=== PATIENT | male | born 1950 | race African-American/Black ===

== ENCOUNTER → 2018-04-02 | Day surgery (SDC) | payer MEDICARE ==
[2018-03-31 11:10] LABS: BASOPHILS # (AUTO) 0.1 (0.0-0.1); EOSINOPHILS # (AUTO) 0.1 (0.0-0.4); EOSINOPHILS % 1.9 % (0.0-6.0); HEMOGLOBIN 14.3 g/dL (14.0-18.0); LYMPHOCYTES # (AUTO) 1.8 (1.0-3.2); LYMPHOCYTES % 28.6 % (18.0-39.1); MEAN CORPUSCULAR HEMOGLOBIN 28.9 pg (28-32); MEAN CORPUSCULAR HGB CONC 33.3 g/dL (31-35); MONOCYTES # (AUTO) 0.7 (0.2-0.8); MONOCYTES % 11.3 % (4.4-11.3); NEUTROPHILS # (AUTO) 3.6 (2.1-6.9); NEUTROPHILS % 56.7 % (38.7-80.0); PLATELET COUNT 263 x10e3/uL (140-360); RED BLOOD COUNT 4.94 x10e6/uL (4.3-5.7); RED CELL DISTRIBUTION WIDTH 15.7 % (11.7-14.4)
--- NOTE | 2018-03-31 12:27 | Diagnostic Imaging Report ---
EXAMINATION: PA and lateral views of the chest. COMPARISON: None CLINICAL HISTORY: Meniscal tear, preoperative study DISCUSSION: Lungs are well-inflated. No focal airspace consolidation, pleural effusion, or pneumothorax. Atherosclerotic calcification of the thoracic aorta with otherwise normal cardiomediastinal contour. No acute osseous abnormality. IMPRESSION: No acute cardiopulmonary abnormalities. Signed by: Dr. Saul Posada M.D. on 03/31/2018 12:24 PM
[~2018-04-02] MED LIST: ACETAMINOPHEN/CODEINE 300MG - 30MG TAB ONE; BUPIVACAINE 0.5%/EPI 30 ML SDV INJ ONE; CEFAZOLIN SOD 2 GM/D5W 50ML 50 ML IV ONE; DEXAMETHASONE SOD PHOS INJ 4 MG/ML VIAL ONE; EPHEDRINE SULFATE INJ 50 MG/10 ML SYR ONE; FENTANYL CITRATE/PF 100MCG/2 ML INJ ONE; KETOROLAC TROMETHAMINE 30 MG/ML VIAL ONE; LIDOCAINE HCL 2% LOCAL INJ 5 ML SDV VIAL INJ ONE; LOSARTAN POTAS100 MG PO; METOPROLOL SUCC50 MG PO; MIDAZOLAM HCL 2 MG/2 ML VIAL ONE; ONDANSETRON HCL INJ 2 MG/ML VIAL ONE; PROPOFOL IV EMULSION 10 MG/ML 20 ML VIAL ONE; SEVOFLURANE INHAL SOLN 250 ML PEN BTL ONE
[2018-04-02 10:20] VITALS: BP 134/84
--- NOTE | 2018-04-02 21:37 | Operative Report ---
DATE OF PROCEDURE: April 02, 2018 PREOPERATIVE DIAGNOSES 1. Right knee medial meniscus tear. 2. 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 POSTOPERATIVE DIAGNOSES 1. Right knee medial meniscus tear. 2. 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 OPERATIONS AND PROCEDURES PERFORMED 1. The patient underwent right knee examination under anesthesia. 2. Right knee arthroscopy. 3. Right knee partial medial meniscectomy. 4. Right knee chondroplasty of the patella, the trochlea, the medial femoral condyle, the medial tibial plateau, the lateral femoral condyle and the lateral tibial plateau. STAFFING SPECIALIST: Mini Garrison. ANESTHESIA: General endotracheal intubation anesthesia. IV FLUIDS: As per the anesthesia record. BRIEF DESCRIPTION OF PATIENT'S OPERATIVE PROCEDURE: Mr. Wolfe was taken to the operating room, placed in the supine position on the operating table. Following induction of general anesthesia as well as the endotracheal intubation, the patient's right lower extremity was examined under anesthesia. He was found to have a mild effusion within the knee joint, but otherwise ligamentously stable knee. The patient's lower extremity was prepped and draped in standard surgical fashion. A 2-portal technique used to provide this patient arthroscopic evaluation of the knee joint. Examination of the suprapatellar pouch, medial and lateral gutters revealed no evidence of loose bodies. There was, however, evidence of chondromalacia of the patellar and trochlear surfaces. The scope was advanced to the medial compartment. Examination of the medial compartment demonstrated a macerated medial meniscus tear. There were portions of the medial meniscus that were everted and extruded out of the medial compartment. A combination of biting forceps and motorized shaver were used to resect the torn portion of the meniscus. There was also chondromalacia of the medial femoral condyle and medial tibial plateau. A chondroplasty of each of these surfaces was performed. The scope was then placed in the intercondylar notch. The anterior cruciate ligament was identified and found to be intact. The scope was advanced in lateral compartment. There was chondromalacia of the articulating surfaces. A shaver was used to provide chondroplasties of the lateral femoral condyle and lateral tibial plateau. The scope was then placed in the suprapatellar pouch and chondroplasty of the patella and trochlea performed. The knee was deflated with sterile normal saline. Each of the portal sites were closed using 4-0 nylon suture. Portal sites as well as the knee itself were then injected with 0.5% Marcaine with epinephrine. Sterile dressings were applied. The patient was then awakened and taken to the postanesthesia care unit in stable condition. Mini Garrison acted as dental laboratory assistant for this case was necessary for both prepping and draping the patient, as well as positioning the leg during surgery and the closure of wounds to allow this case to be successful. Job#: [id number] ELIAZAR
--- OUTSIDE RECORDS SUMMARY | 2018-04-08 12:30 | XMS REPORT ---
Author Author [facility] Address Unknown Phone Unavailable Care Team Providers Care Tomato Pulper Operator Name Role Phone FABRICIO CAT Unavailable Unavailable Payers Payer Name Policy Type Policy Number Effective Date Expiration Date Problems This patient has no known problems. Allergies, Adverse Reactions, Alerts Allergy Name Allergy Type Status Severity Reaction(s) Onset Date Inactive Date Treating Clinician Comments No Known Allergies DA Active U 2015-03-31 00:00:00 Medications This patient has no known medications. Results Test Description Test Time Test Comments Text Results Atomic Results Result Comments CHEST 2 VIEWS 2018-03-31 12:22:00 [place] [address] Patient Name: RAYMUNDO LINK MR #: [id number] : 1950 Age/Sex: 68/M Req #: [id number] Adm Physician: Ordered by: FABRICIO CAT MD Report #: [id number] Location: OR Room/Bed: Procedure: [id number] DX/CHEST 2 VIEWS Exam Date: 03/31/18 Exam Time: 1200 REPORT STATUS: Signed EXAMINATION: PA and lateral views of the chest. COMPARISON: None CLINICAL HISTORY: Meniscal tear, preoperative study DISCUSSION: Lungs are well-inflated. No focal airspace consolidation, pleural effusion, or pneumothorax. Atherosclerotic calcification of the thoracic aorta with otherwise normal cardiomediastinal contour. No acute osseous abnormality. IMPRESSION: No acute cardiopulmonary abnormalities. Signed by: Dr. Joanne Torres M.D. on 03/31/2018 12:24 PM Dictated By: JOANNE TORRES MD 1224 Transcribed By: RELL on 03/31/184 COPY TO: FABRICIO CAT MD
== END | disposition home or self-care (01) ==
LOC: OR 05:53
PROVIDERS: ATTEND Specialist
DX: S83.241A Other tear of medial meniscus, current injury, right knee, initial encounter (principal); M22.41 Chondromalacia patellae, right knee; M17.11 Unilateral primary osteoarthritis, right knee; S83.261A Peripheral tear of lateral meniscus, current injury, right knee, initial encounter; I10 Essential (primary) hypertension; R00.1 Bradycardia, unspecified; X58.XXXA Exposure to other specified factors, initial encounter; Z01.810 Encounter for preprocedural cardiovascular examination; Z01.812 Encounter for preprocedural laboratory examination; Z01.818 Encounter for other preprocedural examination
CPT/HCPCS: 29881; 36415; 71046; 85025; 93005; J1100; J1885; J2001; J2250; J2405; J0690

== ENCOUNTER 2020-01-06 05:13 | Observation (INO) | payer MEDICARE, OTHER ==
--- NOTE | 2020-01-01 12:51 | Diagnostic Imaging Report ---
X-ray chest PA and lateral. History: Preop Comparison: 03/29/2018 Findings: Central airways unremarkable. Heart size normal. Atherosclerotic aorta. No definite pleural effusion or pneumothorax. No focal acute lung disease. Visualized skeleton shows degenerative changes. Upper abdomen unremarkable. The diaphragms are rather low and flat suggesting COPD. Impression: No acute cardiopulmonary disease. Signed by: Alexi Patterson MD on 01/01/2020 12:48 PM
[2020-01-01 12:54] LABS: COLOR,URINE YELLOW (YELLOW)
[2020-01-01 12:55] LABS: BILIRUBIN,URINE NEGATIVE (NEGATIVE); CLARITY,URINE CLEAR (CLEAR); KETONES,URINE NEGATIVE (NEGATIVE); LEUKOCYTE ESTERASE ,URINE TRACE (NEGATIVE); NITRITE,URINE NEGATIVE (NEGATIVE); PROTEIN,URINE DIPSTICK NEGATIVE (NEGATIVE); URINE UROBILINOGEN 0.2 mg/dL (0.2 - 1)
[2020-01-01 13:08] LABS: BASOPHILS % 0.8 % (0.0-1.0); EOSINOPHILS # (AUTO) 0.2 (0.0-0.4); HEMATOCRIT 45.9 % (38.2-49.6); HEMOGLOBIN 15.1 g/dL (14.0-18.0); LYMPHOCYTES # (AUTO) 1.6 (1.0-3.2); LYMPHOCYTES % 29.5 % (18.0-39.1); MEAN CORPUSCULAR HEMOGLOBIN 28.6 pg (28-32); MEAN CORPUSCULAR HGB CONC 32.9 g/dL (31-35); MEAN CORPUSCULAR VOLUME 86.9 fL (81-99); MONOCYTES # (AUTO) 0.6 (0.2-0.8); NEUTROPHILS # (AUTO) 2.9 (2.1-6.9); NEUTROPHILS % 55.5 % (38.7-80.0); PLATELET COUNT 252 x10e3/uL (140-360); RED BLOOD COUNT 5.28 x10e6/uL (4.3-5.7); RED CELL DISTRIBUTION WIDTH 15.6 % (11.7-14.4)
[2020-01-01 13:14] LABS: ANION GAP 13.2 mmol/L (8-16); BLOOD UREA NITROGEN 14 mg/dL (7-26); BUN/CREATININE RATIO 13 (6-25); CALCIUM 9.4 mg/dL (8.4-10.2); CARBON DIOXIDE 24 mmol/L (22-29); CHLORIDE 108 mmol/L (98-107); CREATININE, SERUM 1.12 mg/dL (0.72-1.25); EST GLOMERULAR FILTRATION RATE > 60 ML/MIN (60-); GLUCOSE 101 mg/dL (74-118); POTASSIUM 4.2 mmol/L (3.5-5.1); SODIUM 141 mmol/L (136-145)
[~2020-01-06] VITALS: Ht 185.4 cm; Wt 90.7 kg
[~2020-01-06 05:13] MED LIST changes: -ACETAMINOPHEN/CODEINE 300MG - 30MG TAB ONE; -BUPIVACAINE 0.5%/EPI 30 ML SDV INJ ONE; -CEFAZOLIN SOD 2 GM/D5W 50ML 50 ML IV ONE; -DEXAMETHASONE SOD PHOS INJ 4 MG/ML VIAL ONE; -EPHEDRINE SULFATE INJ 50 MG/10 ML SYR ONE; -FENTANYL CITRATE/PF 100MCG/2 ML INJ ONE; -KETOROLAC TROMETHAMINE 30 MG/ML VIAL ONE; -LIDOCAINE HCL 2% LOCAL INJ 5 ML SDV VIAL INJ ONE; -MIDAZOLAM HCL 2 MG/2 ML VIAL ONE; -ONDANSETRON HCL INJ 2 MG/ML VIAL ONE; -PROPOFOL IV EMULSION 10 MG/ML 20 ML VIAL ONE; -SEVOFLURANE INHAL SOLN 250 ML PEN BTL ONE
[2020-01-06] MEDS ORDERED: CEFAZOLIN SOD 1 GM/NS 50ML 100 ML IV ONE (06:07)
[2020-01-06] MEDS ORDERED: BACITRACIN 50,000 UNIT VIAL ONE (06:12)
[2020-01-06] MEDS ORDERED: HYDROMORPHONE 0.2MG/ML-SOD CHL 30ML PCA SYRINGE IV PRN (10:15)
[2020-01-06] MEDS ORDERED: ONDANSETRON HCL INJ 2MG/ML 2ML 2 MG/ML VIAL IV PRN (10:15)
[2020-01-06] MEDS ORDERED: ACETAMINOPHEN 1000 MG/100 ML IV PRN (10:15)
[2020-01-06] MEDS ORDERED: NALOXONE HCL INJ 0.4 MG/ML AMP IV PRN (10:15)
[2020-01-06] MEDS ORDERED: FENTANYL CITRATE/PF 100MCG/2 ML INJ ONE (10:25)
[2020-01-06] MEDS ORDERED: KETOROLAC TROMETHAMINE 30 MG/ML VIAL ONE (10:34)
[2020-01-06] MEDS ORDERED: HYDROMORPHONE 1MG/1ML INJ ONE (11:09)
--- NOTE | 2020-01-06 11:09 | Diagnostic Imaging Report ---
EXAMINATION: KNEE RIGHT 1-2 VIEWS INDICATION: Postoperative COMPARISON: None FINDINGS: Portable AP and lateral radiographs of the right knee demonstrate immediate postoperative findings of right total knee replacement. Alignment appears anatomic. No unexpected fracture. Postoperative soft tissue emphysema and small joint effusion. Surgical skin nola in place. IMPRESSION: Anatomic alignment status post right total knee replacement. Signed by: David Lilly MD on 01/06/2020 11:06 AM
--- NOTE | 2020-01-06 13:00 | NUR ---
RCD PT FROM PACU BY BED PT IS ALERT AND ORIENTED VITALS CHECKED PT ON CONTRACT DESIGN AGENT HYDROMORPHONE AND MEJÍA ,NO SIGNS OF BLEEDING ON THE RIGHT LEG SURGICAL SITE ,ADMISSION ASSESSMENT AND HISTORY DONE ,INSTRUCTED THE PATIENT REGARDING HOSPITAL POLICY ,SPECIALLY VISITING POLICY BED LOW AND LOCKED CALL LIGHT IN REACH
[2020-01-06 13:56] VITALS: BP 116/65
--- NOTE | 2020-01-06 14:00 | NUR ---
AC TO PHARMACY CLARIFIED WIT DR BROOKE REGARDING XARELTO START TODAY OR TOMORROW HE SAID START TODAY
--- NOTE | 2020-01-06 14:35 | NUR ---
DC TELEY BY ORDER
--- NOTE | 2020-01-06 14:38 | Consultation ---
DATE OF CONSULTATION: 01/06/2020 REASON FOR CONSULTATION: Medical management. HISTORY OF PRESENT ILLNESS: A 69-year-old man, who has presented to [facility] with diagnosis of advanced right knee degenerative joint disease. The patient today underwent successful right total knee arthroplasty, which was performed by Dr. Freddie Castorena. The patient tolerated the surgery well. The patient states he does have some pain in his right knee, which he states is 6/10 in severity. The patient states his primary care physician is Dr. Vish Oseguera. REVIEW OF SYSTEMS: GENERAL: Weight is stable. No fever or chills. HEENT: No headaches. No vision changes. CARDIOVASCULAR/RESPIRATORY: No chest pain. No shortness of breath or cough. GI: No nausea, vomiting, diarrhea, or constipation. : No dysuria, hematuria, or incontinence. He does have a Sethi catheter in place. NEUROMUSCULAR: No limb weakness numbness. The patient states he does not have significant arthritic pain in his left knee joint. ALLERGIES: NO KNOWN DRUG ALLERGIES. PAST MEDICAL HISTORY: 1. Hypertension. 2. Right knee degenerative joint. FAMILY HISTORY: Multiple family members with hypertension. SOCIAL HISTORY: He is single. He lives with his adult brother. He is retired. No history of tobacco or alcohol use. PAST SURGICAL HISTORY: 1. Right total knee arthroplasty today. 2. Right carpal tunnel surgery. 3. Right foot surgery. HOME MEDICATIONS: 1. Losartan 100 mg daily. 2. Metoprolol succinate 200 mg at bedtime. PHYSICAL EXAMINATION: GENERAL: He is awake, alert, and fully oriented. He looks younger than stated age. VITAL SIGNS: Height 6 feet 1 inch, weight 200 pounds, BMI 26. Blood pressure is 116/66, pulse 56, respiratory rate 16, and oxygen saturation 99% on room air. INTEGUMENT: Skin is warm and dry. No pallor, jaundice, or diaphoresis. HEENT: Anicteric sclerae with moist mucous membranes. NECK: Supple. CARDIOVASCULAR: Distant heart sounds. Regular rate and rhythm. LUNGS: No rales. No rhonchi. No wheezes. ABDOMEN: Benign. : The patient has Sethi catheter in place. EXTREMITIES: No edema or deformity. The right knee is currently dressed. No edema in legs. NEUROLOGIC: Intact. DIAGNOSES: 1. Status post right total knee arthroplasty. 2. Hypertension. PLAN: 1. Mobilize the patient. 2. Resume home blood pressure medications. 3. Encourage incentive spirometer usage to prevent atelectasis. 4. We will start oral Xarelto to prevent deep venous thrombosis. 5. Pain control. 6. Discontinue CONTROLLER COAL OR ORE pump. 7. Discontinue Sethi. 8. Discontinue telemetry. I would like to thank, Dr. Freddie Castorena, for this generous consult. I spent 40 minutes in the care of this patient. MD GEENA Rocha/TITUS /[id number] MTDD
[2020-01-06] MEDS ORDERED: BUPIVACAINE HCL 0.5% INJ 30 ML VIAL INJ ONE (14:43)
[2020-01-06] MEDS ORDERED: ROPIVACAINE 0.5% 5 MG/ML 30 ML SDV ONE (14:43)
--- NOTE | 2020-01-06 15:28 | NUR ---
DR CAT OFFICE PREARRANGED FOLLOWING DISCHARGE PLAN OF: HOME TO [address], [place] [id number] HOME HEALTH WITH [facility] CONFIRMED WITH [facility] [phone] DME 3 IN ONE COMMODE, CPM AND RAISED TOILET SEAT. PROVIDED BY [employer]ER[employer] [phone] [employer]BR[employer] SIGNED AND ON CHART COPY LEFT WITH PATIENT GAVE CARD FOR QUESTIONS AND OR CONCERNS.
[2020-01-06] MEDS: CEFAZOLIN SOD 1 GM/NS 50ML 50 ML IV SCH ×2 (15:30→23:52)
[2020-01-06 16:18] VITALS: BP 110/68
[2020-01-06 18:16] VITALS: BP 110/68
[2020-01-06] MEDS ORDERED: DEXAMETHASONE SOD PHOS INJ 4 MG/ML VIAL ONE (18:38)
[2020-01-06] MEDS ORDERED: GLYCOPYRROLATE INJ 0.2 MG/ML VIAL ONE (18:38)
[2020-01-06] MEDS ORDERED: LIDOCAINE HCL 2% LOCAL INJ 5 ML SDV VIAL INJ ONE (18:38)
[2020-01-06] MEDS ORDERED: EPHEDRINE SULFATE INJ 50 MG/ML VIAL ONE (18:38)
[2020-01-06] MEDS ORDERED: PROPOFOL IV EMULSION 10 MG/ML 20 ML VIAL ONE (18:38)
[2020-01-06] MEDS ORDERED: ONDANSETRON HCL INJ 2MG/ML 2ML 2 MG/ML VIAL ONE (18:38)
[2020-01-06] MEDS ORDERED: SEVOFLURANE INHAL SOLN 250 ML PEN BTL ONE (18:38)
[2020-01-06] MEDS ORDERED: ACETAMINOPHEN 1000 MG/100 ML IV ONE (18:38)
--- NOTE | 2020-01-06 18:44 | NUR ---
PT RESTING ON BED BED SIDE REPORT GIVEN TO ONCOMING NURSE
--- NOTE | 2020-01-06 19:25 | NUR ---
BEDSIDE SHIFT REPORT RECEIVED FROM DAY RN. PT IS ALERT AND ORIENTED X3. RESPIRATIONS ARE EVEN AND UNLABORED. PT ON DILAUDID LEAD GENERATION REPRESENTATIVE PUMP- CONTROLLING HIS PAIN WELL. MEJÍA TO GRAVITY- DRAINING CLEAR YELLOW URINE. WAYLON WRAP DRY AND INTACT ON RT LEG. CALL LIGHT WITHIN REACH. BED LOCKED AND IN LOW POSITION.
[2020-01-06 20:00] VITALS: BP 117/65
[2020-01-06 21:00] VITALS: BP 117/65
[2020-01-06] MEDS ORDERED: RIVAROXABAN 10 MG TABLET PO SCH (21:00)
[2020-01-07] VITALS: BP 127/63
[2020-01-07] MEDS ORDERED: SODIUM CHLORIDE 0.9% 250ML 250 ML ONE (00:28)
[2020-01-07 04:00] VITALS: BP 132/76
[2020-01-07 05:09] LABS: HEMATOCRIT 36.3 % (38.2-49.6); HEMOGLOBIN 11.5 g/dL (14.0-18.0)
--- NOTE | 2020-01-07 05:30 | NUR ---
MEJÍA D/C ORDERED. URINAL GIVEN TO PT AND INSTRUCTIONS TO VOID PER URINAL UNTIL VOIDING OK.PT TOLERTED PROCEDURE WELL. PT DID CPM FROM 12 MN TO 4:30AM. PT TOLERATED PROCEDURE WELL.
--- NOTE | 2020-01-07 07:10 | NUR ---
RCD PT AT BED PT IS ALERT AND ORIENTED PT RESTING ON BED IV PATENT BY SALINE FLUSH PT ON WATER VALVE REPAIRER BED LOW AND LOCKED CALL LIGHT IN REACH
--- NOTE | 2020-01-07 07:10 | NUR ---
PT VOIDED AFTER MEJÍA
[2020-01-07] MEDS: CEFAZOLIN SOD 1 GM/NS 50ML 50 ML IV SCH (07:30)
[2020-01-07 08:23] VITALS: BP 141/69
[2020-01-07 08:40] VITALS: BP 141/69
--- NOTE | 2020-01-07 10:23 | Progress Note ---
DATE: 01/07/2020 CHIEF COMPLAINT/HISTORY OF PRESENT ILLNESS: A 69-year-old man, who underwent successful right total knee arthroplasty yesterday, on Monday January 06, 2020. The patient states he does have soreness in his right knee, but the pain is bearable. The patient voices no other complaints. The patient denies any chest pain, shortness of breath, or cough. Hemoglobin today is 11.5 g/dL. The patient did ambulate today with physical therapy. REVIEW OF SYSTEMS: As per HPI. PHYSICAL EXAMINATION: GENERAL: He is awake, alert and fully oriented, very pleasant on exam. VITAL SIGNS: Height 6 feet 1 inch, weight 200 pounds, BMI 26. Blood pressure is 140/70, pulse is 70, respiratory rate 16, oxygen saturation 100% on room air, and temperature 98.2. INTEGUMENT: Skin is warm and dry. No pallor, jaundice, or diaphoresis. HEENT: Anterior sclerae. Moist mucous membranes. NECK: Supple. CARDIOVASCULAR: Distant heart sounds. Regular rate and rhythm. LUNGS: No rales. No rhonchi. No wheezes. ABDOMEN: Benign. EXTREMITIES: The patient's right knee is currently dressed. No edema in legs. NEUROLOGIC: Intact. DIAGNOSES: 1. Status post right total knee arthroplasty. 2. Hypertensive heart disease. PLAN: 1. Discharge planning for today. 2. The patient will continue Xarelto 10 mg daily at home for a total of 2 weeks. 3. The patient will follow up with Orthopedic Surgery, namely Dr. Freddie Castorena within a week and with his primary care physician, namely Dr. Vish Stearns within 2 weeks. MD GEENA Rocha/TITUS /[id number] cc: MD Vish Zapien MTDD
[2020-01-07 12:08] VITALS: BP 138/78
--- NOTE | 2020-01-07 13:20 | NUR ---
PT WENT HOME IN SAFE CONDITION WITH HIS BROTHER
--- NOTE | 2020-01-07 16:30 | Operative Report ---
DATE OF PROCEDURE: 01/06/2020 SURGEON: Freddie Castorena MD PREOPERATIVE DIAGNOSIS: End-stage arthritis, right knee. POSTOPERATIVE DIAGNOSIS: End-stage arthritis, right knee. OPERATIONS/PROCEDURES PERFORMED: The patient underwent right total knee arthroplasty with a size G femoral component, a size 6 tibial component, a 14 mm insert, and a 38 mm patella button. COUTIERIER: There was no education administrative assistant. ANESTHESIA: Genera endotracheal intubation as well as a regional block. IV FLUIDS: As per the Anesthesia record. BLOOD LOSS: Approximately, 100 mL. COMPLICATIONS: None. BRIEF DESCRIPTION OF THE PATIENT'S OPERATIVE PROCEDURE: Mr. Wolfe was taken to the operating room and placed in a supine position on the operating table. Following induction of general anesthesia as well as the endotracheal intubation, the patient's right lower extremity was examined under anesthesia. He was found to have a normal-appearing knee. There were two scars overlying the anterior surface of the consistent with a previous knee arthroscopy. There was no evidence of instability of the knee joint. The patient's lower extremity was prepped and draped in standard surgical fashion. The case was begun by creating a linear incision along the longitudinal access of the right lower extremity. This incision was carried through skin only. Blunt dissection was used to deepen the incision to the level of the extensor mechanism. Full-thickness skin flaps were elevated both medially and laterally exposing the extensor mechanism. The extensor mechanism was then incised along its medial border. The patella was everted laterally. Osteophytes were removed from the patella and the patella was measured for later reaming. The fat pad was also excised at this time. The knee was placed in flexion in the anterior horns of the medial lateral meniscus were resected. The anterior and posterior cruciate ligaments were also resected at this time. Osteophytes were removed from the femur. A drill was then used to gain access to the femoral canal. The distal cutting block was then affixed to the femur and the distal femoral cuts were performed. The femur was sized and the 4-in-1 cutting block was then affixed to the femur and those cuts were completed. The intercondylar notch cutting block was then affixed to the femur. Taken care to adjust appropriately for positioning in the medial lateral plane. The intercondylar notch cut was performed as well as the trochlear cut. Attention was then turned to the tibia. The external tibial alignment guide was affixed to the tibia and adjusted appropriately. The proximal tibia was then cut. The keel cut was performed. Trial femoral and tibial components were then inserted into the knee. The soft tissues were balanced. Trial inserts were then placed within the tibial tray and the knee was placed through range of motion and found to be stable with a 14 mm insert. The patella was then reamed and a 38 mm patella button was affixed to the undersurface of the patella. The patellofemoral joint was reduced and placed in range of motion and found to track appropriately. All trial components were removed. Cement was mixed on the back table and the femoral tibial and patellar components were then cemented into place. Once the cement cured, the tibial insert was placed in the tibial tray. The tourniquet was deflated and hemostasis was obtained. The knee was reduced and placed through range of motion and found to be stable. The knee was then copiously irrigated with bacitracin laden normal saline. The extensor mechanism was repaired in a [id number] fashion with nonabsorbable suture. The remaining soft tissues were closed in a multilayer fashion. Sterile dressings were applied. The patient was then awakened and taken to Postanesthesia Care Unit in stable condition. MD CORNELIA Zapien/TITUS /[id number]
== END 2020-01-07 13:20 | disposition home or self-care (01) ==
LOC: OR 05:13 → PACU V 10:06 → MED/SURG 13:11
PROVIDERS: ADMIT Specialist; ATTEND Specialist
DX: M17.11 Unilateral primary osteoarthritis, right knee (principal); I10 Essential (primary) hypertension; Z11.59 Encounter for screening for other viral diseases; Z01.810 Encounter for preprocedural cardiovascular examination; Z01.812 Encounter for preprocedural laboratory examination; Z01.818 Encounter for other preprocedural examination
CPT/HCPCS: 27447; 36415 ×3; 71046; 73560; 80048; 81003; 85014; 85018; 85025; 86850; 86900; 86920 ×2; 93005; 97110 ×2; 97116 ×3; 97139 ×2; 97161; 97530 ×2; C1713; G0378 ×2; J0131; J0690 ×2; J1100; J1170; J1885; J2001; J2405; J2704; J3010; J7050; U0002; J2795